=== PATIENT | female | born 1990 | race Caucasian/White ===

== ENCOUNTER 2018-12-25 05:25 | Inpatient (IN) | payer BC ==
[2018-12-25] MEDS ORDERED: Bicitra 30 ML UDCUP PO SCH (05:45)
[2018-12-25] MEDS ORDERED: Promethazine HCl 25 MG/ML VIAL IM PRN ×3 (05:45→10:16)
[2018-12-25] MEDS ORDERED: Lactated Ringer's 1,000 ML IV SCH (05:45)
[2018-12-25] MEDS ORDERED: hydrALAZINE 20 MG/ML VIAL SLOW IVP PRN ×2 (05:45→10:16)
[2018-12-25] MEDS ORDERED: CEFAZOLIN 2 GM in Premix Bag 1 BAG IVPB SCH (05:45)
[2018-12-25] MEDS ORDERED: Ondansetron PF 4 MG/2 ML Vial IVP PRN ×3 (05:45→10:16)
[2018-12-25 05:59] VITALS: BMI 26.7
[2018-12-25] MEDS ORDERED: FLU VACC QS2019-20(6MOS UP)/PF 60 MCG/0.5 ML SYRINGE IM ONE (06:15)
[2018-12-25 06:16] LABS: Hemoglobin 13.5 g/dL (12.0-16.0); Mean Corpuscular HGB CONC 34.8 g/dL (32.0-36.0); Mean Corpuscular Hemoglobin 32.5 pg (27.0-31.0); Mean Corpuscular Volume 93.4 fL (78.0-98.0); Mean Platelet Volume 7.2 fL (7.4-10.4); Platelet Count 223 thou/uL (130-400); RBC Distribution Width 11.7 % (11.5-14.5); Red Blood Cell (RBC) Count 4.15 mill/uL (4.20-5.40); White Blood Cell (WBC) Count 11.7 thou/uL (4.8-10.8)
[2018-12-25 06:54] LABS: HBSAg Index 0.16 S/CO (0-0.99); Hep B Surf Ag Non-Reactive S/CO (NonReactive); Syphilis Antibody Nonreactive (Nonreactive); Syphilis Antibody Index 0.06 S/CO (<1.00 Non-Reactive)
[2018-12-25] MEDS ORDERED: MORPHINE 5 MG/10 ML PF VIAL ONE (07:06)
[2018-12-25] MEDS ORDERED: ePHEDrine/0.9% NaCl/PF SYRINGE 50 mg/10 ml ONE (07:07)
[2018-12-25] MEDS ORDERED: Ondansetron PF 4 MG/2 ML Vial ONE (07:07)
[2018-12-25] MEDS ORDERED: Oxytocin 10 UNITS/ML VIAL ONE ×2 (07:07→08:01)
--- NOTE | 2018-12-25 07:32 | PDOC.LDHP ---
Labor and Delivery H&P Chief complaint: scheduled section HPI: 28yo at 39w by IVF presents for RCS. Pt is gestational carrier. No complaints. Current gestational age (weeks): 39 Due date: 12/31/18 Dating criteria: last menstrual period Grav: 2 Para: 1 Current complications: none Abnormal US findings: No Past Medical History: denies Current medications: pre- vitamins Previous surgical history: low tranverse CS (and breast augmentation) Allergies/Adverse Reactions: Allergies Allergy/AdvReac Type Severity Reaction Status Date / Time No Known Allergies Allergy Verified 12/25/18 05:44 Social history: none - Physical Exam Vital signs reviewed and normal: yes General: NAD Heart: RRR Lungs: CTAB Abdomen: gravid Extremeties: no edema FHT: category 1 [place] contractions every: none - OB Labs Blood type: B RH: positive Antibody Screen: negative HIV: negative RPR: negative HEPSAg: negative 1 hour GCT: negative GBS: negative Urine drug screen: negative Rubella: immune - Assessment L&D Assessment: scheduled repeat section - Plan Plan: admit to L&D, to OR for section, informed consent obtained, anesthesia consult for pain management
[2018-12-25] MEDS ORDERED: PHENYLEPHRINE-NS 100 MCG/ML 10 ML SYRINGE ONE (07:48)
--- NOTE | 2018-12-25 08:30 | PDOC.OPDEL ---
OB Operative/Delivery Note Delivery Dr/Surgeon: Marisa Assist: Isreal Pre-Delivery Diagnosis: scheduled section Procedure/Post Delivery Dx: repeat low transverse CS Weeks gestation: 39 Anesthesia: spinal - Findings A Sex: female - 1 min: 8 - 5 min: 9 - Additional Findings/Plan Placenta delivered: manual removal findings: low transverse hysterotomy without extension, normal uterus, normal tubes, normal ovaries Estimated blood loss: 400cc Compilations/Other Findings: during gentle traction on placenta cord, uterus began to invert. Placenta was manually removed and uterus was easily replaced into anatomic position. Post delivery plan: routine recovery
[2018-12-25] MEDS ORDERED: Naloxone HCl 0.4 mg/ml Vial IV PRN (08:37)
[2018-12-25] MEDS ORDERED: L&D-Morphine 4 MG/ML VIAL SLOW IVP PRN (08:37)
[2018-12-25] MEDS ORDERED: diphenhydrAMINE 50 MG/ML VIAL IVP PRN (08:37)
[2018-12-25] MEDS ORDERED: Meperidine HCl/PF 25 MG/ML VIAL SLOW IVP PRN (08:37)
[2018-12-25] MEDS ORDERED: Promethazine HCl 25 MG SUPP PR PRN (08:37)
[2018-12-25] MEDS ORDERED: Naloxone HCl 0.4 mg/ml Vial IVP PRN ×2 (08:37)
[2018-12-25] MEDS ORDERED: Ondansetron HCl/PF 4 MG/2 ML Vial IVP PRN (08:37)
[2018-12-25] MEDS ORDERED: HYDROmorphone 2 MG/ML VIAL SLOW IVP PRN (08:37)
[2018-12-25] MEDS ORDERED: Communication Order-Pharmacy FS SCH (08:45)
[2018-12-25] MEDS ORDERED: Ketorolac Tromethamine 30 MG/ML VIAL IVP SCH (08:45)
[2018-12-25] MEDS ORDERED: Meperidine HCl/PF 25 MG/ML VIAL ONE (08:55)
[2018-12-25] MEDS ORDERED: Zolpidem Tartrate 5 MG TAB PO PRN (10:16)
[2018-12-25] MEDS ORDERED: Lanolin Ointment 7 GM TUBE TOP PRN (10:16)
[2018-12-25] MEDS ORDERED: Acetaminophen 325 MG TAB PO PRN (10:16)
[2018-12-25] MEDS ORDERED: Simethicone Chewable 80 MG TAB PO PRN (10:16)
[2018-12-25] MEDS ORDERED: diphenhydrAMINE 25 MG CAP PO PRN (10:16)
[2018-12-25] MEDS ORDERED: Bisacodyl 10 MG SUPP PR PRN (10:16)
[2018-12-25] MEDS ORDERED: Adacel (T-DAP) 0.5 ML SYRINGE IM ONE (10:16)
[2018-12-25] MEDS ORDERED: Ketorolac Tromethamine 30 MG/ML VIAL ONE (10:33)
[2018-12-25] MEDS: Ketorolac Tromethamine 30 MG/ML VIAL IVP PRN ×2 (10:37→16:28)
[2018-12-25] MEDS ORDERED: Docusate Calcium (SURFAK) 240 MG CAP PO SCH (10:45)
[2018-12-25] MEDS ORDERED: Prenatal Vitamin 1 TAB PO SCH (10:45)
[2018-12-25] MEDS ORDERED: Ferrous Sulfate 325 MG TAB PO SCH (10:45)
[2018-12-25] MEDS ORDERED: NS / Oxytocin 40 units/1000ml 1,000 ML ONE (10:48)
[2018-12-25] MEDS ORDERED: Morphine 4 MG/ML VIAL ONE (11:01)
[2018-12-25] MEDS ORDERED: Morphine 4 MG/ML VIAL SLOW IVP SCH (12:00)
--- NOTE | 2018-12-25 14:18 | OP ---
DATE OF PROCEDURE: 12/25/2018 PREOPERATIVE DIAGNOSES: 1. Intrauterine at 39 weeks and zero days. 2. Prior section x1, declines trial of labor. 3. Gestational carrier. POSTOPERATIVE DIAGNOSES: 1. Intrauterine at 39 weeks and zero days. 2. Prior section x1, declines trial of labor. 3. Gestational carrier. PROCEDURE PERFORMED: Repeat low transverse section via Pfannenstiel skin incision. ANESTHESIA: Spinal. IMPROVEMENT COORDINATOR SURGEON: Noemi Bach DO ESTIMATED BLOOD LOSS: 400 mL. IVF: Pending. URINE OUTPUT: Pending. COMPLICATIONS: None. DRAINS: Negro catheter. FINDINGS: Female , cephalic presentation, and clear amniotic fluid. Apgars and weight are pending. Hysterotomy without extension. Normal uterus, ovaries, and tubes bilaterally. OPERATIVE TECHNIQUE: The patient was taken to the operating room, where spinal anesthesia was obtained without difficulty. The patient was prepped and draped in a sterile fashion in a dorsal supine position with a leftward tilt. After ensuring adequacy of anesthesia, a Pfannenstiel skin incision was made and carried down to the underlying subcutaneous tissue with a knife. The fascia was nicked in the midline with a knife and carried laterally with the Covarrubias scissors. The superior aspect of the fascia was tented with two Jamie's and dissected off the rectus with the Covarrubias scissors. The inferior aspect of the fascia was tented with two Jamie's and dissected off the rectus with the Covarrubias scissors. The peritoneum was bluntly entered into and manually retracted. The George O retractor was placed and the vesicouterine peritoneum was incised to create a bladder flap. The lower uterine segment was incised in a transverse fashion and extended with a Stewart maneuver. The 's head was brought to the hysterotomy and delivered with fundal pressure. The 's cord was clamped and infant was handed to awaiting Josue team. Cord blood was obtained. Placenta was allowed to spontaneously deliver. The uterus did start to invert upon gentle traction of the cord. At that time, the placenta was manually removed and the uterus was replaced into its anatomic position. There was no excessive hemorrhaging. The posterior cul-de-sac was left out. The uterus was placed back into the abdomen and the hysterotomy was repaired with a #1 Monocryl in a running locking fashion. An additional [id number] was placed on the right corner of the hysterotomy for additional hemostasis. Irrigation of the pelvis was performed and suctioned and hemostasis was noted to be excellent. The George O retractor was removed. The rectus muscles were examined and noted to be hemostatic. The fascia was reapproximated with a 0 PDS x2 sutures with excellent reapproximation. Subcutaneous tissue was irrigated and cauterized of any bleeders and reapproximated with a 2-0 plain gut in a running fashion. The skin was closed with 4-0 Monocryl in a subcuticular fashion and Dermabond was applied. The patient tolerated the procedure well. Sponge, lap, and needle counts correct x2. The patient was taken to recovery room in stable condition. The patient received Ancef 2 g prior to the procedure. Job ID: [id number]
[2018-12-25] MEDS: Ferrous Sulfate 325 MG TAB PO SCH (17:17)
[2018-12-25] MEDS ORDERED: HYDROcodone/Acetaminophen 5/325 mg Tablet PO PRN (20:45)
[2018-12-25] MEDS: Docusate Calcium (SURFAK) 240 MG CAP PO SCH (21:00)
[2018-12-26] MEDS: HYDROcodone/Acetaminophen 5/325 mg Tablet PO PRN ×5 (00:28→23:11)
[2018-12-26] MEDS: Ibuprofen 800 MG TAB PO SCH ×3 (05:27→22:11)
[2018-12-26 05:50] LABS: Hemoglobin 11.9 g/dL (12.0-16.0); Mean Corpuscular HGB CONC 33.8 g/dL (32.0-36.0); Mean Corpuscular Hemoglobin 32.6 pg (27.0-31.0); Mean Corpuscular Volume 96.4 fL (78.0-98.0); Mean Platelet Volume 7.3 fL (7.4-10.4); Platelet Count 188 thou/uL (130-400); RBC Distribution Width 11.8 % (11.5-14.5); Red Blood Cell (RBC) Count 3.64 mill/uL (4.20-5.40)
[2018-12-26] MEDS: Ferrous Sulfate 325 MG TAB PO SCH ×2 (08:37→17:16)
[2018-12-26] MEDS: Docusate Calcium (SURFAK) 240 MG CAP PO SCH ×2 (08:41→22:11)
[2018-12-26] MEDS ORDERED: Prenatal Vitamin 1 TAB PO SCH (09:00)
--- NOTE | 2018-12-26 15:43 | PDOC.PP ---
Post Progress Note Post Day #: 1 PO intake tolerated: yes Flatus: yes Ambulation: yes Vital Signs (12 hours) Temp Pulse Resp BP Pulse Ox 12/26/18 11:00 98.5 F 81 16 126/80 99 12/26/18 07:39 98.6 F 73 20 112/71 96 Weight Weight 171 lb - Physical Examination General: NAD Cardiovascular: RRR Respiratory: non-labored breathing Abdominal: no distention, appropriately TTP Fundus firm & at: umb Skin: CS incision dry & intact Neurological: no gross focal deficits Psychiatric: normal affect Result Diagrams: 12/26/18 05:21 Additional Labs: Post Labs Blood Type B POSITIVE 12/25/18 06:30 Hep Bs Antigen Non-Reactive S/CO (NonReactive) 12/25/18 06:03 - Assessment/Plan POD1 s/p RCS VSSAF Hgb normal postop, met all milestones, pain controlled Rh pos RImm Cont postop care, home tomorrow
[2018-12-27] MEDS: HYDROcodone/Acetaminophen 5/325 mg Tablet PO PRN (06:26)
[2018-12-27] MEDS: Ibuprofen 800 MG TAB PO SCH (06:26)
--- NOTE | 2018-12-27 07:39 | DIS ---
DATE OF ADMISSION: 12/25/2018 DATE OF DISCHARGE: 12/27/2018 ADMITTING DIAGNOSES: 1. Intrauterine at 39 weeks. 2. Previous section x1. 3. Gestational carrier. DISCHARGE DIAGNOSES: 1. Intrauterine at 39 weeks. 2. Previous section x1. 3. Gestational carrier. PROCEDURE PERFORMED: Repeat lower transverse section. HOSPITAL COURSE: The patient is a 28-year-old, G2, now P2 female, presenting at 39 weeks for a scheduled repeat . She served as a gestational carrier for this . Please refer to the operative note for complete details of the surgery. Surgery was uncomplicated and the patient was sent to for routine postoperative care. Today is now postoperative day 2. She is tolerating p.o., voiding on her own, having decreased lochia and good pain control. PHYSICAL EXAMINATION: VITAL SIGNS: Blood pressure this morning 111/60, temperature 98.6, pulse is 74, and respiratory rate of 16. GENERAL: She appears to be in no acute distress. She is alert and oriented, cooperative and pleasant to interact with. HEENT: Head is normocephalic, atraumatic. ABDOMEN: Fundus is firm. Incision is clean, dry, and intact. EXTREMITIES: Nontender with symmetrical edema. LABORATORY STUDIES: Postdelivery hemoglobin was 11.9, hematocrit 35.1, and platelets of 188,000. DISCHARGE INSTRUCTIONS: The patient will be discharged home. She has instructions to seek medical attention in 2 weeks for a routine postoperative visit or sooner if she experiences fever, increasing pain, or bleeding. Prescriptions have been sent off to the pharmacy per Dr. Cunningham. The patient will be discharged home. Job ID: [id number]
[2018-12-27 09:04] VITALS: BP 105/73; TEMP 98.2
== END 2018-12-27 09:00 | disposition home or self-care (01) | DRG 788 ==
LOC: L&D 05:25 → EDSTATUS 11:26 → 3SW 11:59
PROVIDERS: ADMIT Student in an Organized Health Care Education/Training Program; ATTEND Student in an Organized Health Care Education/Training Program
PROC: 10D00Z1 Extraction of Products of Conception, Low, Open Approach (ICD-10-PCS; principal; 2018-12-25)
DX: O34.211 Maternal care for low transverse scar from previous cesarean delivery (principal); Z33.3 Pregnant state, gestational carrier; Z3A.39 39 weeks gestation of pregnancy; Z37.0 Single live birth
CPT/HCPCS: 36415; 51702; 85027; 86780; 86850; 86900; 86901; 87340; J0690; J1885; J2175; J2270; J2274; J2405; J2590